=== PATIENT | female | born 1980 | race Caucasian/White ===

== ENCOUNTER 2016-09-13 15:24 | Emergency (ER) | payer SELFPAY ==
[2016-09-13 15:41] VITALS: RESP 18; TEMP 97.8
[2016-09-13] MEDS ORDERED: DIAZEPAM 5 MG TAB PO STA (17:22)
--- NOTE | 2016-09-13 17:33 | ED ---
General Adult HPI - General Chief complaint: Chest Pain Stated complaint: L shoulder pain Time Seen by Provider: 09/13/16 17:11 Source: patient, RN notes reviewed Mode of arrival: ambulatory Limitations: no limitations - History of Present Illness Initial comments: Patient 35-year-old female who presents emergency room today with multiple complaints. Patient does admit that she has had pain to the left shoulder area over the last few days. Does admit that there is no known injury or trauma. States she was at work earlier today and the symptoms seem to be worse. She states is worse with any movements of the left shoulder or her neck. States worse with rotation to the left. Patient does admit also that she's been having chest pain on and off over the last several months. Patient states is "pressure" in the center chest. She states his pain at times. States seems comfortable. States last typically approximately an hour and a half. She states she has days and not others. Patient admits that she does not have a family doctor has not had this checked out. She admits to a family history of cardiac disease. She denies any other complaints at this time. she states chest pain started while she was out in the waiting room. She does believe that it may be somewhat anxiety related as typically she is able to put her head down to her breathing and symptoms resolved. Patient denies any recent fever, chills, shortness of breath, back pain, abdominal pain, nausea or vomiting, numbness or tingling, dysuria or hematuria, constipation or diarrhea, headaches or visual changes, or any other complaints. - Related Data Previous Rx's Medication Instructions Recorded Cyclobenzaprine [Flexeril] 10 mg PO TID #20 tab 09/13/16 Ibuprofen [Motrin] 600 mg PO Q6HR PRN #40 day 09/13/16 Allergies Allergy/AdvReac Type Severity Reaction Status Date / Time Penicillins Allergy Rash/Hives Verified 09/13/16 17:57 Multi-grain foods Allergy Rash/Hives Uncoded 09/13/16 17:58 Review of Systems ROS Statement: Those systems with pertinent positive or pertinent negative responses have been documented in the HPI. ROS Other: All systems not noted in ROS Statement are negative. Past Medical History Past Medical History: No Reported History History of Any Multi-Drug Resistant Organisms: None Reported Additional Past Surgical History / Comment(s): carpal tunnel release Past Psychological History: No Psychological Hx Reported Smoking Status: Never smoker Past Alcohol Use History: None Reported Past Drug Use History: None Reported General Exam - General Exam Comments Initial Comments: General: The patient is awake and alert, in no distress, and does not appear acutely ill. Eye: Pupils are equal, round and reactive to light, extra-ocular movements are intact. No nystagmus. There is normal conjunctiva bilaterally. No signs of icterus. Ears, nose, mouth and throat: There are moist mucous membranes and no oral lesions. Neck: The neck is supple, there is no tenderness or JVD. Cardiovascular: There is a regular rate and rhythm. No murmur, rub or gallop is appreciated.pain reproduced on palpation to the anterior chest wall. Respiratory: Lungs are clear to auscultation, respirations are non-labored, breath sounds are equal. No wheezes, stridor, rales, or rhonchi. Gastrointestinal: Soft, non-distended, non-tender abdomen without masses or organomegaly noted. There is no rebound or guarding present. No CVA tenderness. Bowel sounds are unremarkable. Musculoskeletal: patient has normal appearance of cervical, thoracic, lumbar spine. No step-offs forms appreciated. No tenderness of the midline. Patient does have normal appearance of the left shoulder. Shows limited range of motion with abduction due to pain. He is tender over the posterior aspect of the left shoulder and also trapezius. Strength 5/5. Sensation intact. Pulses equal bilaterally 2+. Neurological: A&O x 3. CN II-XII intact, There are no obvious motor or sensory deficits. Coordination appears grossly intact. Speech is normal. Skin: Skin is warm and dry and no rashes or lesions are noted. Psychiatric: Cooperative, appropriate mood & affect, normal judgment. Limitations: no limitations Course Vital Signs 09/13/16 15:38 Temperature 97.8 F Pulse Rate 106 H Respiratory 18 Rate Blood Pressure 135/89 O2 Sat by Pulse 96 Oximetry Medical Decision Making - Medical Decision Making Case discussed in detail with attending physician Dr. Antonio. Patient reexamined at this time shows no signs acute distress patient was given Valium here in the emergency room. She admits that her shoulder pain has completely resolved and she has full range of motion is feeling much better here in the emergency room. She denies any chest pain at this time. She admits that his chest pain on and off over the last several months. Patient's labs been reviewed and are unremarkable. Negative cardiac enzymes. EKG shows normal sinus rhythm. patient's pain reproduced on palpation of the chest wall. Results were discussed with patient. Importance of following up with family doctor were discussed with the patient for further evaluation. She is advised return to emergency room if any symptoms increase or worsen. She'll be continued on a muscle laxer for her shoulder pain advised most likely muscle spasm or pulled muscle. Advised continue with anti-inflammatories as well. Advised patient to return to emergency room if any symptoms increase or worsen or for any other concerns. She states understanding and is in agreement with this plan. - Lab Data Result diagrams: 09/13/16 17:45 09/13/16 17:45 Lab Results 09/13/16 09/13/16 09/13/16 Range/Units 17:45 17:45 17:45 WBC 11.5 H (3.8-10.6) k/uL RBC 4.49 (3.80-5.40) m/uL Hgb 12.2 (11.4-16.0) gm/dL Hct 37.1 (34.0-46.0) % MCV 82.6 (80.0-100.0) fL MCH 27.3 (25.0-35.0) pg MCHC 33.0 (31.0-37.0) g/dL RDW 13.7 (11.5-15.5) % Plt Count 373 (150-450) k/uL Neutrophils % 82 % Lymphocytes % 12 % Monocytes % 3 % Eosinophils % 1 % Basophils % 0 % Neutrophils # 9.4 H (1.3-7.7) k/uL Lymphocytes # 1.4 (1.0-4.8) k/uL Monocytes # 0.4 (0-1.0) k/uL Eosinophils # 0.1 (0-0.7) k/uL Basophils # 0.1 (0-0.2) k/uL PT (9.0-12.0) sec INR (<1.1) APTT (22.0-30.0) sec Sodium 140 (137-145) mmol/L Potassium 4.3 (3.5-5.1) mmol/L Chloride 107 (98-107) mmol/L Carbon Dioxide 21 L (22-30) mmol/L Anion Gap 12 mmol/L BUN 11 (7-17) mg/dL Creatinine 0.81 (0.52-1.04) mg/dL Est GFR (MDRD) Af Amer >60 (>60 ml/min/1.73 sqM) Est GFR (MDRD) Non-Af >60 (>60 ml/min/1.73 sqM) Glucose 82 (74-99) mg/dL Calcium 9.4 (8.4-10.2) mg/dL Magnesium 2.0 (1.6-2.3) mg/dL Total Bilirubin 0.7 (0.2-1.3) mg/dL AST 18 (14-36) U/L ALT 24 (9-52) U/L Alkaline Phosphatase 67 (38-126) U/L Total Creatine Kinase 101 (30-135) U/L CK-MB (CK-2) 0.5 (0.0-2.4) ng/mL CK-MB (CK-2) Rel Index 0.5 Troponin I <0.012 (0.000-0.034) ng/mL Total Protein 7.6 (6.3-8.2) g/dL Albumin 4.4 (3.5-5.0) g/dL Urine Color Urine Appearance (Clear) Urine pH (5.0-8.0) Ur Specific [place] (1.001-1.035) Urine Protein (Negative) Urine Glucose (UA) (Negative) Urine Ketones (Negative) Urine Blood (Negative) Urine Nitrite (Negative) Urine Bilirubin (Negative) Urine Urobilinogen (<2.0) mg/dL Ur Leukocyte Esterase (Negative) Urine RBC (0-5) /hpf Urine WBC (0-5) /hpf Ur Squamous Epith Cells (0-4) /hpf Urine Mucus (None) /hpf Urine HCG, Qual (Not Detectd) 09/13/16 09/13/16 09/13/16 Range/Units 17:45 17:50 17:50 WBC (3.8-10.6) k/uL RBC (3.80-5.40) m/uL Hgb (11.4-16.0) gm/dL Hct (34.0-46.0) % MCV (80.0-100.0) fL MCH (25.0-35.0) pg MCHC (31.0-37.0) g/dL RDW (11.5-15.5) % Plt Count (150-450) k/uL Neutrophils % % Lymphocytes % % Monocytes % % Eosinophils % % Basophils % % Neutrophils # (1.3-7.7) k/uL Lymphocytes # (1.0-4.8) k/uL Monocytes # (0-1.0) k/uL Eosinophils # (0-0.7) k/uL Basophils # (0-0.2) k/uL PT 11.2 (9.0-12.0) sec INR 1.1 (<1.1) APTT 23.9 (22.0-30.0) sec Sodium (137-145) mmol/L Potassium (3.5-5.1) mmol/L Chloride (98-107) mmol/L Carbon Dioxide (22-30) mmol/L Anion Gap mmol/L BUN (7-17) mg/dL Creatinine (0.52-1.04) mg/dL Est GFR (MDRD) Af Amer (>60 ml/min/1.73 sqM) Est GFR (MDRD) Non-Af (>60 ml/min/1.73 sqM) Glucose (74-99) mg/dL Calcium (8.4-10.2) mg/dL Magnesium (1.6-2.3) mg/dL Total Bilirubin (0.2-1.3) mg/dL AST (14-36) U/L ALT (9-52) U/L Alkaline Phosphatase (38-126) U/L Total Creatine Kinase (30-135) U/L CK-MB (CK-2) (0.0-2.4) ng/mL CK-MB (CK-2) Rel Index Troponin I (0.000-0.034) ng/mL Total Protein (6.3-8.2) g/dL Albumin (3.5-5.0) g/dL Urine Color Yellow Urine Appearance Cloudy H (Clear) Urine pH 5.5 (5.0-8.0) Ur Specific [place] 1.021 (1.001-1.035) Urine Protein 1+ H (Negative) Urine Glucose (UA) Negative (Negative) Urine Ketones 1+ H (Negative) Urine Blood Negative (Negative) Urine Nitrite Negative (Negative) Urine Bilirubin Negative (Negative) Urine Urobilinogen <2.0 (<2.0) mg/dL Ur Leukocyte Esterase Large H (Negative) Urine RBC 12 H (0-5) /hpf Urine WBC 22 H (0-5) /hpf Ur Squamous Epith Cells 14 H (0-4) /hpf Urine Mucus Many H (None) /hpf Urine HCG, Qual Not Detected (Not Detectd) Disposition Clinical Impression: Muscle strain, Chest wall pain Disposition: HOME SELF-CARE Condition: Good Instructions: Muscle Spasm (ED), Chest Wall Pain (ED) Additional Instructions: Please use medication as discussed. please be aware that the muscle relaxant may make you drowsy. Please follow-up with family doctor in the next 2 days. Please return to emergency room if the symptoms increase or worsen or for any other concerns. Prescriptions: Cyclobenzaprine [Flexeril] 10 mg PO TID #20 tab Ibuprofen [Motrin] 600 mg PO Q6HR PRN #40 day PRN Reason: Pain Referrals: None,Stated [Primary Care Provider] - 1-2 days Diamante Cha MD [STAFF PHYSICIAN] - 1-2 days Johana Mejias MD [REFERRING] - 1-2 days Time of Disposition: 18:56
[2016-09-13 17:56] LABS: Basophils # (A) 0.1 k/uL (0-0.2); Basophils % (A) 0 %; CH 27.5; CHCM 33.4; Eosinophils # (A) 0.1 k/uL (0-0.7); Eosinophils % (A) 1 %; HCT 37.1 % (34.0-46.0); HDW 2.36; HGB 12.2 gm/dL (11.4-16.0); Luc # (Auto) 0.09; Luc % (Auto) 1; Lymphocytes # (A) 1.4 k/uL (1.0-4.8); Lymphocytes % (A) 12 %; MCH 27.3 pg (25.0-35.0); MCV 82.6 fL (80.0-100.0); Mean Platelet Volume 7.2; Monocytes # (A) 0.4 k/uL (0-1.0); Monocytes % (A) 3 %; Neutrophils # (A) 9.4 k/uL (1.3-7.7); Neutrophils % (A) 82 %; RBC 4.49 m/uL (3.80-5.40); RDW 13.7 % (11.5-15.5); WBC 11.5 k/uL (3.8-10.6); WBC (Perox) 11.75
[2016-09-13 18:05] LABS: INR 1.1 (<1.1); Partial Thromboplastin Time 23.9 sec (22.0-30.0); Prothrombin Time 11.2 sec (9.0-12.0)
[2016-09-13 18:05] LABS: Appearance,Urine Cloudy (Clear); Bilirubin,Urine Negative (Negative); Glucose,Urine (UA) Negative (Negative); Ketones,Urine 1+ (Negative); Leukocyte Esterase,Urine Large (Negative); Mucus,Urine Many /hpf; Nitrite,Urine Negative (Negative); PH, Urine 5.5 (5.0-8.0); Particle Count 29569; Protein,Urine 1+ (Negative); RBC,Urine 12 /hpf (0-5); Specific Gravity,Urine 1.021 (1.001-1.035); Squamous Epithelial Cell,Urine 14 /hpf (0-4); UA Billing (MACRO vs. MICRO) MICRO; Urobilinogen,Urine <2.0 mg/dL (<2.0); WBC,Urine 22 /hpf (0-5)
[2016-09-13 18:06] LABS: ALT 24 U/L (9-52); AST 18 U/L (14-36); Alkaline Phosphatase 67 U/L (38-126); Anion Gap 12 mmol/L; Blood Urea Nitrogen 11 mg/dL (7-17); Calcium 9.4 mg/dL (8.4-10.2); Carbon Dioxide 21 mmol/L (22-30); Chloride 107 mmol/L (98-107); Glucose 82 mg/dL (74-99); Non-African American GFR(MDRD) >60 (>60 ml/min/1.73 sqM); Potassium 4.3 mmol/L (3.5-5.1); Sodium 140 mmol/L (137-145); Total Bilirubin 0.7 mg/dL (0.2-1.3); Total Protein 7.6 g/dL (6.3-8.2)
[2016-09-13 18:14] LABS: Creatine Kinase 101 U/L (30-135)
--- NOTE | 2016-09-13 18:24 | XR ---
EXAMINATION TYPE: XR chest 2V DATE OF EXAM: 09/13/2016 COMPARISON: NONE HISTORY: Chest pain TECHNIQUE: Frontal and lateral views of the chest are obtained. FINDINGS: There is no focal air space opacity, pleural effusion, or pneumothorax seen. The cardiac silhouette size is within normal limits. The osseous structures are intact. IMPRESSION: No acute cardiopulmonary process.
[2016-09-13 18:27] LABS: Creatine Kinase MB 0.5 ng/mL (0.0-2.4); Troponin I <0.012 ng/mL (0.000-0.034)
[2016-09-13 18:56] VITALS: BP 152/99; PULSE 109
== END 2016-09-13 19:19 | disposition home or self-care (01) ==
LOC: EC 15:24
DX: S46.912A Strain of unspecified muscle, fascia and tendon at shoulder and upper arm level, left arm, initial encounter (principal); R07.89 Other chest pain; Z88.0 Allergy status to penicillin; Z91.018 Allergy to other foods; Z82.49 Family history of ischemic heart disease and other diseases of the circulatory system; X58.XXXA Exposure to other specified factors, initial encounter
CPT/HCPCS: 36415; 71020; 80053; 81001; 81025; 82550; 82553; 83735; 84484; 85025; 85610; 85730; 93005; 99285

== ENCOUNTER → 2019-04-26 | Outpatient (CLI) | payer BC ==
--- NOTE | 2019-04-26 09:53 | NM ---
Nuclear medicine hepatobiliary scan. HISTORY: Pain. DOSAGE: The patient received 8 ounces of ensure plus and 4.9 mCi of Technetium 99m Choletec. FINDINGS: There is normal hepatic extraction. The gallbladder is seen by 15 minutes. There is bilia ry to bowel clearance by 15 minutes. Ejection fraction is 69%. IMPRESSION: 1. Normal hepatobiliary exam
== END | disposition home or self-care (01) ==
LOC: RADNMMAIN 06:51
PROVIDERS: ATTEND Family Medicine
DX: R10.11 Right upper quadrant pain (principal); Z88.0 Allergy status to penicillin
CPT/HCPCS: 78226; A9537

== ENCOUNTER 2019-06-20 13:07 | Day surgery (SDC) | payer BC ==
[2019-06-16 11:35] VITALS: BMI 38.7
[~2019-06-20 13:07] MED LIST: LACTATED RINGERS 1,000 ML IV SCH; LIDOCAINE 1% (10MG/ML) FOR IV START INTRADERMA PRN
[2019-06-20 13:20] VITALS: TEMP 97.8
[2019-06-20] MEDS ORDERED: LACTATED RINGERS 1,000 ML IV ONE (13:20)
[2019-06-20] MEDS ORDERED: PROPOFOL 10 MG/ML 20 ML VIAL IV ONE (14:06)
--- NOTE | 2019-06-20 14:28 | P.PCN ---
Date of Procedure: 06/20/19 Description of Procedure: BRIEF HISTORY: 38-year-old female who presents with complaints of 3 months of right upper quadrant abdominal pain with plan for EGD for further evaluation. She reports persistent abdominal pain with nausea and nonbloody vomiting. Unintentional weight loss of over 50 pounds. Symptoms worse with meals. PROCEDURE PERFORMED: Esophagogastroduodenoscopy with biopsy. PREOPERATIVE DIAGNOSIS: Right upper quadrant abdominal pain, altered bowel function. ESTIMATED BLOOD LOSS: Minimal. IV sedation per anesthesia. PROCEDURE: After informed consent was obtained, the patient was brought into the endoscopy unit. IV sedation was administered by Anesthesia under continuous monitoring. Initially the Olympus GIF-190 video endoscope was inserted into the mouth. Esophagus intubated without any difficulty. It was gradually advanced into the stomach and duodenum and carefully examined. The bulb and the second part of the duodenum appeared normal, with biopsies taken to rule out celiac sprue. The scope at this time was withdrawn to the stomach, adequately insufflated with air, and upon careful examination, mucosa of the antrum, body, cardia and the fundus appeared normal, except for some mild scattered erythema in the antrum and body suggestive of mild gastritis with biopsies taken. The scope was then withdrawn into the esophagus. The GE junction was located at 38 cm from the incisors, with biopsies taken to rule out reflux esophagitis. The esophagus appeared normal. There were no erosions or ulcerations seen and the patient tolerated the procedure well. IMPRESSION: 1. Mild gastritis antrum and body, biopsied. 2. Biopsies of the duodenum and GE junction. RECOMMENDATIONS: The findings of this examination were discussed with the patient and her mother. Okay to resume diet. Okay to resume medications. Follow-up in gastroenterology clinic as previously scheduled for results of biopsies and further management.
[2019-06-20 14:38] VITALS: RESP 16
[2019-06-20] MEDS ORDERED: ONDANSETRON 4 MG/2 ML VIAL IVP ONE (14:48)
[2019-06-20 14:59] VITALS: BP 114/68; PULSE 79
== END 2019-06-20 15:20 | disposition home or self-care (01) ==
LOC: ORWHC2ENDO 13:07
PROVIDERS: ATTEND Internal Medicine
DX: K29.50 Unspecified chronic gastritis without bleeding (principal); K20.9 Esophagitis, unspecified; J45.909 Unspecified asthma, uncomplicated; F41.9 Anxiety disorder, unspecified; R63.4 Abnormal weight loss; Z87.891 Personal history of nicotine dependence; Z88.0 Allergy status to penicillin; Z79.899 Other long term (current) drug therapy; Z98.890 Other specified postprocedural states
CPT/HCPCS: 81025; 88305; 43239; J2405; J2704

== ENCOUNTER 2019-06-22 12:47 | Observation (INO) | payer BC ==
[2019-06-22] MEDS ORDERED: SODIUM CHLORIDE 0.9% 1,000 ML IV STA (14:17)
[2019-06-22] MEDS ORDERED: MORPHINE SULFATE 4 MG/ML SYRINGE IV STA (14:17)
[2019-06-22] MEDS ORDERED: METOCLOPRAMIDE 5 MG/ML 2 ML VIAL IVP STA (14:17)
[2019-06-22 14:31] LABS: Appearance,Urine Cloudy (Clear); Bacteria,Urine Rare /hpf; Bilirubin,Urine Negative (Negative); Blood,Urine Moderate (Negative); Color,Urine Yellow; Glucose,Urine (UA) Negative (Negative); Hyaline Casts,Urine 2 /lpf (0-2); Ketones,Urine 3+ (Negative); Leukocyte Esterase,Urine Moderate (Negative); Mucus,Urine Many /hpf; Nitrite,Urine Negative (Negative); Protein,Urine 1+ (Negative); RBC,Urine 8 /hpf (0-5); Squamous Epithelial Cell,Urine 2 /hpf (0-4); WBC,Urine 9 /hpf (0-5)
[2019-06-22 14:44] LABS: Basophils # (A) 0.1 k/uL (0-0.2); Basophils % (A) 1 %; Eosinophils # (A) 0.1 k/uL (0-0.7); Eosinophils % (A) 1 %; HCT 38.4 % (34.0-46.0); HGB 12.5 gm/dL (11.4-16.0); Lymphocytes # (A) 1.5 k/uL (1.0-4.8); Lymphocytes % (A) 18 %; MCH 28.3 pg (25.0-35.0); MCHC 32.6 g/dL (31.0-37.0); Monocytes # (A) 0.4 k/uL (0-1.0); Monocytes % (A) 5 %; Neutrophils % (A) 74 %; Platelet Count 387 k/uL (150-450); RBC 4.41 m/uL (3.80-5.40); RDW 13.4 % (11.5-15.5); WBC 8.1 k/uL (3.8-10.6)
[2019-06-22 14:52] LABS: ALT 12 U/L (4-34); AST 20 U/L (14-36); African American GFR (CKD) >90 (>60 ml/min/1.73 sqM); Albumin 4.5 g/dL (3.5-5.0); Alkaline Phosphatase 65 U/L (38-126); Anion Gap 10 mmol/L; Blood Urea Nitrogen 12 mg/dL (7-17); Calcium 9.6 mg/dL (8.4-10.2); Carbon Dioxide 22 mmol/L (22-30); Chloride 105 mmol/L (98-107); Glucose 73 mg/dL (74-99); Non-African American GFR(CKD) 87 (>60 ml/min/1.73 sqM); Potassium 4.6 mmol/L (3.5-5.1); Sodium 137 mmol/L (137-145); Total Bilirubin 0.5 mg/dL (0.2-1.3); Total Protein 7.4 g/dL (6.3-8.2)
--- NOTE | 2019-06-22 14:55 | ED ---
General Adult HPI - General Chief complaint: Abdominal Pain Stated complaint: gallbladder problems Time Seen by Provider: 06/22/19 14:05 Source: patient, RN notes reviewed, old records reviewed Mode of arrival: ambulatory Limitations: no limitations - History of Present Illness Initial comments: 38-year-old female patient presents to ED for abdominal pain, nausea vomiting and diarrhea. Patient reports that she has been having these symptoms since January. Patient was that she has had extensive investigations into her gallbladder. This includes ultrasounds, HIDA scan which have been unremarkable. Patient that she is due to see a surgeon for the first time next week, however reports that the pain nausea vomiting diarrhea is unbearable. States that the pain is located in her periumbilical, right upper quadrant, right lower quadrant region. Denies a chance being . Denies any other complaints. Systemic: Pt denies fatigue, fever/chills, rash. Pt denies weakness, night sweats, weight loss. Neuro: Pt denies headache, visual disturbances, syncope or pre-syncope. HEENT: Pt denies ocular discharge or irritation, otalgia, rhinorrhea, p haryngitis or notable lymphadenopathy. Cardiopulmonary: Pt denies chest pain, SOB, heart palpitations, dyspnea on exertion. : Pt denies dysuria, burning w/ urination, frequency/urgency. Denies new onset urinary or bowel incontinence. MSK: Pt denies myalgia, loss of strength or function in extremities. Neuro: Pt denies new onset weakness, paresthesias. - Related Data Home Medications Medication Instructions Recorded Confirmed Albuterol Inhaler [Ventolin Hfa 1 - 2 puff INHALATION RT-Q6H PRN 06/16/19 06/20/19 Inhaler] Albuterol Nebulized [Ventolin 2.5 mg INHALATION Q4H PRN 06/16/19 06/20/19 Nebulized] Junel Fe 1 tab PO DAILY 06/16/19 06/20/19 Ondansetron HCl [Zofran] 8 mg PO Q8H 06/16/19 06/16/19 PARoxetine [Paxil] 10 mg PO QAM 06/16/19 06/16/19 Allergies Allergy/AdvReac Type Severity Reaction Status Date / Time Penicillins Allergy Rash/Hives Verified 06/22/19 12:58 Multi-grain foods Allergy Rash/Hives Uncoded 06/16/19 11:30 Review of Systems ROS Statement: Those systems with pertinent positive or pertinent negative responses have been documented in the HPI. ROS Other: All systems not noted in ROS Statement are negative. Past Medical History Past Medical History: Asthma Additional Past Medical History / Comment(s): nausea, rt sided abdominal pain History of Any Multi-Drug Resistant Organisms: None Reported Past Surgical History: Orthopedic Surgery Additional Past Surgical History / Comment(s): rt carpal tunnel release, wisdom teeth, D&C, EGD, colonoscopy Past Anesthesia/Blood Transfusion Reactions: Previous Problems w/ Anesthesia Additional Past Anesthesia/Blood Transfusion Reaction / Comment(s): states "had asthma attack" in post op after last procedure Past Psychological History: Anxiety Smoking Status: Former smoker General Exam - General Exam Comments Initial Comments: Constitutional: NAD, AOX3, Pt has pleasant affect. HEENT: NC/AT, trachea midline, neck supple, no lymphadenopathy. Posterior pharynx non erythematous, without exudates. External ears appear normal, without discharge. Mucous membranes moist. Eyes PERRLA, EOM intact. There is no scleral icterus. No pallor noted. Cardiopulmonary: RRR, no murmurs, rubs or gallops, no JVD noted. Lungs CTAB in anterior and posterior nicholas. No peripheral edema. Abdominal exam: Abdomen mild tenderness to palpation periumbilical, right lower quadrant region. No guarding or rigidity, no skin changes. Neuro: CN II-XII grossly intact. No nuchal rigidity. No raccon eyes, no morgan sign, no hemotympanum. No cervical spinal tenderness. MSK: No posterior calf tenderness bilaterally, homans sign negative bilaterally. Posterior tibialis and radial pulse +2 bilaterally. Sensation intact in upper and lower extremities. Full active ROM in upper and lower extremities, 5/5 stregnth. Limitations: no limitations Course Vital Signs 06/22/19 06/22/19 06/22/19 12:57 13:58 15:23 Temperature 97.8 F 98.8 F Pulse Rate 72 100 64 Respiratory 16 18 18 Rate Blood Pressure 117/81 119/78 114/75 O2 Sat by Pulse 99 100 98 Oximetry Medical Decision Making - Medical Decision Making 38-year-old female patient presents to ED for abdominal pain, nausea vomiting and diarrhea. Patient reports that she has been having these symptoms since January. Patient was that she has had extensive investigations into her gallbladder. This includes ultrasounds, HIDA scan which have been unremarkable. Patient that she is due to see a surgeon for the first time next week, however reports that the pain nausea vomiting diarrhea is unbearable. States that the pain is located in her periumbilical, right upper quadrant, right lower quadrant region. Denies a chance being . Denies any other complaints. Patient vital signs stable, afebrile. Physical exam displayed: Abdomen mild tenderness to palpation periumbilical, right lower quadrant region. No guarding or rigidity, no skin changes. Laboratory investigations displayed +[address] and pelvis displayed mild long segment fast straining ascending colon most likely in the base of acute uncomplicated inflammatory or infectious colitis. Left adnexal mass could be contiguous of the uterus. A vaginal ultrasound displayed no adnexal mass or torsion. Large uterine fibroid. Patient be admitted for colitis. Initiated on fluids, antibiotics. Case discussed with Dr. Alarcon. - Lab Data Result diagrams: 06/22/19 14:30 06/22/19 14:30 Lab Results 06/22/19 06/22/19 06/22/19 Range/Units 13:45 13:45 14:30 WBC 8.1 (3.8-10.6) k/uL RBC 4.41 (3.80-5.40) m/uL Hgb 12.5 (11.4-16.0) gm/dL Hct 38.4 (34.0-46.0) % MCV 87.0 (80.0-100.0) fL MCH 28.3 (25.0-35.0) pg MCHC 32.6 (31.0-37.0) g/dL RDW 13.4 (11.5-15.5) % Plt Count 387 (150-450) k/uL Neutrophils % 74 % Lymphocytes % 18 % Monocytes % 5 % Eosinophils % 1 % Basophils % 1 % Neutrophils # 6.0 (1.3-7.7) k/uL Lymphocytes # 1.5 (1.0-4.8) k/uL Monocytes # 0.4 (0-1.0) k/uL Eosinophils # 0.1 (0-0.7) k/uL Basophils # 0.1 (0-0.2) k/uL Sodium (137-145) mmol/L Potassium (3.5-5.1) mmol/L Chloride (98-107) mmol/L Carbon Dioxide (22-30) mmol/L Anion Gap mmol/L BUN (7-17) mg/dL Creatinine (0.52-1.04) mg/dL Est GFR (CKD-EPI)AfAm (>60 ml/min/1.73 sqM) Est GFR (CKD-EPI)NonAf (>60 ml/min/1.73 sqM) Glucose (74-99) mg/dL Plasma Lactic Acid Lionel (0.7-2.0) mmol/L Calcium (8.4-10.2) mg/dL Total Bilirubin (0.2-1.3) mg/dL AST (14-36) U/L ALT (4-34) U/L Alkaline Phosphatase (38-126) U/L Total Protein (6.3-8.2) g/dL Albumin (3.5-5.0) g/dL Lipase (23-300) U/L Urine Color Yellow Urine Appearance Cloudy H (Clear) Urine pH 6.0 (5.0-8.0) Ur Specific [place] 1.030 (1.001-1.035) Urine Protein 1+ H (Negative) Urine Glucose (UA) Negative (Negative) Urine Ketones 3+ H (Negative) Urine Blood Moderate H (Negative) Urine Nitrite Negative (Negative) Urine Bilirubin Negative (Negative) Urine Urobilinogen 2.0 (<2.0) mg/dL Ur Leukocyte Esterase Moderate H (Negative) Urine RBC 8 H (0-5) /hpf Urine WBC 9 H (0-5) /hpf Ur Squamous Epith Cells 2 (0-4) /hpf Urine Bacteria Rare H (None) /hpf Hyaline Casts 2 (0-2) /lpf Urine Mucus Many H (None) /hpf Urine HCG, Qual Not Detected (Not Detectd) 06/22/19 06/22/19 Range/Units 14:30 14:30 WBC (3.8-10.6) k/uL RBC (3.80-5.40) m/uL Hgb (11.4-16.0) gm/dL Hct (34.0-46.0) % MCV (80.0-100.0) fL MCH (25.0-35.0) pg MCHC (31.0-37.0) g/dL RDW (11.5-15.5) % Plt Count (150-450) k/uL Neutrophils % % Lymphocytes % % Monocytes % % Eosinophils % % Basophils % % Neutrophils # (1.3-7.7) k/uL Lymphocytes # (1.0-4.8) k/uL Monocytes # (0-1.0) k/uL Eosinophils # (0-0.7) k/uL Basophils # (0-0.2) k/uL Sodium 137 (137-145) mmol/L Potassium 4.6 (3.5-5.1) mmol/L Chloride 105 (98-107) mmol/L Carbon Dioxide 22 (22-30) mmol/L Anion Gap 10 mmol/L BUN 12 (7-17) mg/dL Creatinine 0.86 (0.52-1.04) mg/dL Est GFR (CKD-EPI)AfAm >90 (>60 ml/min/1.73 sqM) Est GFR (CKD-EPI)NonAf 87 (>60 ml/min/1.73 sqM) Glucose 73 L (74-99) mg/dL Plasma Lactic Acid Lionel 0.7 (0.7-2.0) mmol/L Calcium 9.6 (8.4-10.2) mg/dL Total Bilirubin 0.5 (0.2-1.3) mg/dL AST 20 (14-36) U/L ALT 12 (4-34) U/L Alkaline Phosphatase 65 (38-126) U/L Total Protein 7.4 (6.3-8.2) g/dL Albumin 4.5 (3.5-5.0) g/dL Lipase 32 (23-300) U/L Urine Color Urine Appearance (Clear) Urine pH (5.0-8.0) Ur Specific [place] (1.001-1.035) Urine Protein (Negative) Urine Glucose (UA) (Negative) Urine Ketones (Negative) Urine Blood (Negative) Urine Nitrite (Negative) Urine Bilirubin (Negative) Urine Urobilinogen (<2.0) mg/dL Ur Leukocyte Esterase (Negative) Urine RBC (0-5) /hpf Urine WBC (0-5) /hpf Ur Squamous Epith Cells (0-4) /hpf Urine Bacteria (None) /hpf Hyaline Casts (0-2) /lpf Urine Mucus (None) /hpf Urine HCG, Qual (Not Detectd) Disposition Clinical Impression: Colitis, Abdominal pain, Dehydration Disposition: ADMITTED IP TO THIS HOSP Condition: Serious Is patient prescribed a controlled substance at d/c from ED?: No
--- NOTE | 2019-06-22 15:14 | CT ---
EXAMINATION TYPE: CT abdomen pelvis w con DATE OF EXAM: 06/22/2019 HISTORY: right flank pain CT DLP: 1870.8mGycm Automated Exposure Control for Dose Reduction was Utilized. CONTRAST: CT scan of the abdomen and pelvis is performed with IV Contrast, patient injected with 100 mL of Isov ue 300. COMPARISON: None. FINDINGS: LUNG BASES: No significant abnormality is appreciated. LIVER/GB: No significant abnormality is appreciated. No radiopaque calculi. PANCREAS: No significant abnormality is seen. SPLEEN: No significant abnormality is seen. ADRENALS: No significant abnormality is seen. KIDNEYS: No hydronephrosis of either kidney. Too small to accurately characterize left renal lesion i s seen emanating from the anterior midpole on delayed imaging. BOWEL: There is minimal inflammatory change surrounding the ascending colon in a long segment with brizuela btle bowel wall thickening that may be exaggerated due to incomplete distention and lack of oral cont rast. What is thought to be the appendix is retrocecal and within normal limits of size. 6 mm short a xis adjacent lymph node is seen near the terminal ileum. UTERUS/ADNEXA: Follicular and/or cystic change of the right ovary and lobulated 5.6 x 4.6 cm left adn exal mass that could be contiguous with the uterus. LYMPH NODES: No greater than 1cm abdominal or pelvic lymph nodes are appreciated. OSSEOUS STRUCTURES: No significant abnormality is seen. Mild degenerative change. IMPRESSION: 1. Mild long segment fat stranding of the ascending colon most likely on the basis of acute uncomplic ated inflammatory or infectious colitis. 2. Left adnexal mass that could be contiguous with the uterus. Pelvic ultrasound is recommended for f urther evaluation.
[2019-06-22] MEDS ORDERED: NALOXONE 0.4 MG/ML 1 ML VIAL IV PRN (16:07)
[2019-06-22] MEDS ORDERED: LEVOFLOXACIN 750MG-D5W PMX 750 MG in DEXTROSE/WATER 1 150ML.BAG IVPB STA (16:07)
[2019-06-22] MEDS ORDERED: METOCLOPRAMIDE 5 MG/ML 2 ML VIAL IM PRN (16:09)
[2019-06-22] MEDS: SODIUM CHLORIDE 0.9% 1,000 ML IV SCH (16:24)
--- NOTE | 2019-06-22 17:03 | US ---
EXAMINATION TYPE: US transvaginal DATE OF EXAM: 06/22/2019 COMPARISON: NONE CLINICAL HISTORY: colitis. pain follow up to ct scan TECHNIQUE: Transvaginal (TV EXAM MEASUREMENTS: Uterus: 7.6 x 3.6 x 4.3 cm Endometrial Stripe: .3 cm Right Ovary: 3.1 x 2.2 x 2.1 cm Left Ovary: 2.7 x 2.1 x 1.6 cm 1. Uterus: Anteverted Heterogenous. Fibroids seen largest to the left measuring 4.6 x 5.1 x 6.0 cm . 2. Endometrium: wnl 3. Right Ovary: wnl 4. Left Ovary: wnl Spectral, color and waveform doppler imaging shows good arterial and venous flow within the ovaries ; there is no evidence for ovarian torsion. 5. Bilateral Adnexa: wnl 6. Posterior cul-de-sac: wnl IMPRESSION: No adnexal mass or free fluid. No evidence of ovarian torsion. Normal endometrium. Large uterine fibr oid.
[2019-06-22] MEDS: MORPHINE SULFATE 4 MG/ML SYRINGE IV PRN (20:52)
[2019-06-22] MEDS: ONDANSETRON 4 MG/2 ML VIAL IVP PRN (22:06)
[2019-06-23] MEDS: SODIUM CHLORIDE 0.9% 1,000 ML IV SCH ×4 (00:14→20:55)
[2019-06-23] MEDS: PANTOPRAZOLE 40 MG/10 ML VIAL IVP SCH ×2 (08:58→20:54)
[2019-06-23 11:42] VITALS: BMI 38.7
[2019-06-23] MEDS: MORPHINE SULFATE 4 MG/ML SYRINGE IV PRN (11:45)
[2019-06-23] MEDS: ONDANSETRON 4 MG/2 ML VIAL IVP PRN (11:47)
[2019-06-23] MEDS ORDERED: LEVOFLOXACIN 750MG-D5W PMX 750 MG in DEXTROSE/WATER 1 150ML.BAG IVPB SCH (12:00)
[2019-06-23] MEDS: PARoxetine 10 MG TAB PO SCH (13:25)
[2019-06-23] MEDS: ONDANSETRON 4 MG/2 ML VIAL IVP SCH ×2 (15:25→23:18)
[2019-06-23] MEDS: DICYCLOMINE 20 MG TAB PO SCH ×2 (17:39→20:54)
--- NOTE | 2019-06-23 23:01 | P.HPIM ---
History of Present Illness H&P Date: 06/23/19 Chief Complaint: abd pain Charlotte Roblero is a 38 yo F with PMH of anxiety, uterine fibroids who presented to the ED complaining of a 2 month history of progressively worsening episodic abdominal pain, nausea, vomiting and diarrhea. She states that over the past few weeks especially these episodes have become more frequent. She does not feel this worsens with certain types of food. She has recently had evaluations of her gallbladder outpatient including HIDA scan which was negative. On presentation her vitals were stable, labs unremarkable, CT with fat stranding along ascending colon. Review of Systems All systems: negative Constitutional: Denies chills, Denies fever Eyes: denies blurred vision, denies pain Ears, nose, mouth and throat: Denies headache, Denies sore throat Cardiovascular: Denies chest pain, Denies shortness of breath Respiratory: Denies cough Gastrointestinal: Reports as per HPI, Reports abdominal pain, Reports bloating, Reports nausea, Reports vomiting, Denies diarrhea, Denies melena Genitourinary: Reports abnormal vaginal bleeding, Denies dysuria, Denies hematuria Musculoskeletal: Denies myalgias Integumentary: Denies pruritus, Denies rash Neurological: Denies numbness, Denies weakness Psychiatric: Denies anxiety, Denies depression Endocrine: Denies fatigue, Denies weight change Past Medical History Past Medical History: Asthma Additional Past Medical History / Comment(s): nausea, rt sided abdominal pain, large uterine fibroid History of Any Multi-Drug Resistant Organisms: None Reported Past Surgical History: Orthopedic Surgery Additional Past Surgical History / Comment(s): rt carpal tunnel release, wisdom teeth, D&C, EGD, colonoscopy, HIDA Past Anesthesia/Blood Transfusion Reactions: Previous Problems w/ Anesthesia Additional Past Anesthesia/Blood Transfusion Reaction / Comment(s): states "had asthma attack" in post op after last procedure Past Psychological History: Anxiety Smoking Status: Former smoker Past Alcohol Use History: None Reported Additional Past Alcohol Use History / Comment(s): quit smoking in 2019, smoked for a few months only 1/2ppd Past Drug Use History: None Reported Additional Drug Use History / Comment(s): occasional CBD oil use, instructed to hold 24 hrs prior to procedure - Past Family History Mother Family Medical History: Hypertension, Rheumatoid Arthritis (RA) Additional Family Medical History / Comment(s): Diverticulitis, Neuropathy, anxiety Father Family Medical History: Hypertension, Thyroid Disorder Medications and Allergies Home Medications Medication Instructions Recorded Confirmed Type Albuterol Inhaler [Ventolin Hfa 1 - 2 puff INHALATION RT-Q6H PRN 06/16/19 06/22/19 History Inhaler] Albuterol Nebulized [Ventolin 2.5 mg INHALATION RT-QID PRN 06/16/19 06/22/19 History Nebulized] Ondansetron HCl [Zofran] 8 mg PO Q8H PRN 06/16/19 06/22/19 History PARoxetine [Paxil] 10 mg PO DAILY 06/16/19 06/22/19 History ALPRAZolam [Xanax] 0.25 mg PO DAILY PRN 06/22/19 06/22/19 History Norethindrone-E.estradiol-Iron 1 tab PO DAILY 06/22/19 06/22/19 History [Junel Fe 1 mg-20 Mcg Tablet] Allergies Allergy/AdvReac Type Severity Reaction Status Date / Time Penicillins Allergy Rash/Hives Verified 06/22/19 18:25 Multi-grain foods Allergy Rash/Hives Uncoded 06/16/19 11:30 Physical Exam Vitals: Vital Signs Temp Pulse Resp BP Pulse Ox 06/23/19 20:50 98.5 F 68 16 104/66 97 06/23/19 16:00 16 06/23/19 14:57 98.8 F 64 16 110/72 100 06/23/19 08:00 16 06/23/19 07:28 98.2 F 73 12 114/76 99 06/23/19 05:20 97.6 F 77 20 119/71 95 Intake and Output 06/23/19 06/23/19 06/23/19 06:59 14:59 22:59 Intake Total 500 Balance 500 Intake: Oral 500 Other: Voiding Method Toilet Toilet Toilet # Voids 3 2 1 # Bowel Movements 0 Weight 108.862 kg General: well nourished, well developed, NAD. Vitals reviewed Eyes: PERRL, EOMI, conjunctiva normal HENT: normocephalic, mucus membranes moist Neck: supple, no JVD Lungs: normal respiratory effort, no wheezes or rales CV: Regular rate and rhythm, no murmur. Peripheral pulses 2+ Abdomen: soft, nondistended, no organomegaly. mildly tender throughout Lymph: no cervical or axillary LAD Skin: warm and dry. Neuro: A&Ox3, normal mood and affect Results CBC & Chem 7: 06/22/19 14:30 06/22/19 14:30 Labs: Abnormal Lab Results - Last 24 Hours (Table) 06/23/19 Range/Units 08:37 ESR 25 H (0-20) mm/hr Thrombosis Risk Factor Assmnt - Choose All That Apply Each Factor Represents 1 point: Obesity (BMI >25) Other Risk Factors: No Thrombosis Risk Factor Assessment Total Risk Factor Score: 1 Thrombosis Risk Factor Assessment Level: Low Risk Assessment and Plan (1) Generalized anxiety disorder Current Visit: Yes Status: Acute Code(s): F41.1 - GENERALIZED ANXIETY DISORDER SNOMED Code(s): 17058111 (2) Abdominal pain Current Visit: Yes Status: Acute Code(s): R10.9 - UNSPECIFIED ABDOMINAL PAIN SNOMED Code(s): 35292872 (3) Colitis Current Visit: Yes Status: Acute Code(s): K52.9 - NONINFECTIVE GASTROENTER ITIS AND COLITIS, UNSPECIFIED SNOMED Code(s): 51174224 Plan: 1. Abdominal pain, colitis. GI consulted for further evaluation. Bentyl and levaquin ordered. Zofran for nausea 2. JOEY. Continue home paxil 3. Irregular menses, uterine fibroid. Stable, TVUS otherwise negative
[2019-06-24] MEDS: SODIUM CHLORIDE 0.9% 1,000 ML IV SCH ×2 (02:19→13:55)
[2019-06-24] MEDS: PANTOPRAZOLE 40 MG/10 ML VIAL IVP SCH (08:45)
[2019-06-24] MEDS: PARoxetine 10 MG TAB PO SCH (08:45)
[2019-06-24] MEDS: DICYCLOMINE 20 MG TAB PO SCH ×2 (08:45→12:57)
[2019-06-24] MEDS: ONDANSETRON 4 MG/2 ML VIAL IVP SCH (08:47)
[2019-06-24 09:11] VITALS: RESP 12
[2019-06-24 13:11] VITALS: BP 109/74; PULSE 74; TEMP 98.5
--- NOTE | 2019-06-24 14:05 | P.CONS ---
History of Present Illness - Reason for Consult Consult date: 06/23/19 Abdominal pain, colitis Requesting physician: Derik Bowden - Chief Complaint Abdominal pain, diarrhea - History of Present Illness 38-year-old female with a medical history significant for uterine fibroids, anxiety who presented to the hospital with complaints of abdominal pain, vomiting and diarrhea. She is been having abdominal pain for months now. She describes the pain as in the right upper quadrant severe in nature and sharp. Previously she had been evaluated with a HIDA scan as well as an EGD on 06/20/2019 which was significant only for gastritis. She reports multiple episodes of nausea and vomiting prior to presentation no signs or symptoms of GI bleeding. She also reports multiple loose bowel movements. No history of colonoscopy in the past. She had a computed tomography scan in evaluation which showed possible inflammation of the right colon. Review of Systems REVIEW OF SYSTEMS: CONSTITUTIONAL: Denies any fevers, chills, weight change or fatigue. CARDIOVASCULAR: Denies any chest pain, palpitations high or low blood pressures RESPIRATORY: Denies any shortness of breath, hemoptysis or cough. GENITOURINARY: No dysuria or hematuria. MUSCULOSKELETAL: No weakness reported. SKIN: Denies any new rashes or lesions, jaundice or pallor. PSYCHIATRIC: Denies any depression but she does have a history of xiety. NEUROLOGY: Denies headache, denies any new focal deficits. EARS/NOSE/THROAT: No recent hearing change, congestion, nasal discharge or sore throat. EYES: No pain in eyes, discharge or change in vision. GASTROINTESTINAL: As per HPI. Past Medical History Past Medical History: Asthma Additional Past Medical History / Comment(s): nausea, rt sided abdominal pain, large uterine fibroid History of Any Multi-Drug Resistant Organisms: None Reported Past Surgical History: Orthopedic Surgery Additional Past Surgical History / Comment(s): rt carpal tunnel release, wisdom teeth, D&C, EGD, colonoscopy, HIDA Past Anesthesia/Blood Transfusion Reactions: Previous Problems w/ Anesthesia Additional Past Anesthesia/Blood Transfusion Reaction / Comm: states "had asthma attack" in post op after last procedure Past Psychological History: Anxiety Smoking Status: Former smoker Past Alcohol Use History: None Reported Additional Past Alcohol Use History / Comment(s): quit smoking in 2019, smoked for a few months only 1/2ppd Past Drug Use History: None Reported Additional Drug Use History / Comment(s): occasional CBD oil use, instructed to hold 24 hrs prior to procedure - Past Family History Mother Family Medical History: Hypertension, Rheumatoid Arthritis (RA) Additional Family Medical History / Comment(s): Diverticulitis, Neuropathy, anxiety Father Family Medical History: Hypertension, Thyroid Disorder Medications and Allergies Home Medications Medication Instructions Recorded Confirmed Type Albuterol Inhaler [Ventolin Hfa 1 - 2 puff INHALATION RT-Q6H PRN 06/16/19 06/22/19 History Inhaler] Albuterol Nebulized [Ventolin 2.5 mg INHALATION RT-QID PRN 06/16/19 06/22/19 History Nebulized] Ondansetron HCl [Zofran] 8 mg PO Q8H PRN 06/16/19 06/22/19 History PARoxetine [Paxil] 10 mg PO DAILY 06/16/19 06/22/19 History ALPRAZolam [Xanax] 0.25 mg PO DAILY PRN 06/22/19 06/22/19 History Norethindrone-E.estradiol-Iron 1 tab PO DAILY 06/22/19 06/22/19 History [Junel Fe 1 mg-20 Mcg Tablet] Dicyclomine [Bentyl] 20 mg PO QID #40 tab 06/24/19 Rx Pantoprazole [Protonix] 40 mg PO BID #60 tablet. 06/24/19 Rx Allergies Allergy/AdvReac Type Severity Reaction Status Date / Time Penicillins Allergy Rash/Hives Verified 06/22/19 18:25 Multi-grain foods Allergy Rash/Hives Uncoded 06/16/19 11:30 Physical Exam Vitals: Vital Signs Temp Pulse Pulse Resp BP BP Pulse Ox 06/23/19 14:57 98.8 F 64 16 110/72 100 06/23/19 08:00 16 06/23/19 07:28 98.2 F 73 12 114/76 99 06/23/19 05:20 97.6 F 77 20 119/71 95 06/22/19 21:23 98.3 F 97 20 116/76 95 06/22/19 18:10 98.0 F 56 L 16 111/82 97 06/22/19 17:45 18 06/22/19 15:23 64 18 114/75 98 Intake and Output 06/23/19 06/23/19 06/23/19 06:59 14:59 22:59 Intake Total 500 Balance 500 Intake: Oral 500 Other: Voiding Method Toilet Toilet # Voids 3 2 Weight 108.862 kg On physical examination, patient appears comfortable in no apparent distress. HEAD: Normocephalic, atraumatic. EYES: No scleral icterus. No conjunctival injection. MOUTH: No lesions, tongue midline. NECK: Trachea midline, no gross abnormalities. CHEST: Clear to auscultation with no wheezing or rhonchi appreciated. HEART: Regular rate and rhythm. ABDOMEN: Soft, obese, mildly tender to palpation. Bowel sounds are positive. No organomegaly. No guarding or rigidity. EXTREMITIES: No pedal edema. SKIN: No rashes, no jaundice. NEUROLOGIC: Alert and oriented x3. No focal deficits. Results CBC & Chem 7: 06/22/19 14:30 06/22/19 14:30 Labs: Abnormal Lab Results - Last 24 Hours (Table) 06/23/19 Range/Units 08:37 ESR 25 H (0-20) mm/hr CT scan - abdomen: report reviewed (Computed tomography scan of the abdomen suggestive of inflammation of the right colon.) Assessment and Plan (1) Abdominal pain Narrative/Plan: 38-year-old female with history of anxiety and abdominal pain which has been present for the past few months. EGD performed on 06/20/2019 significant only for gastritis presented with symptoms of nausea, vomiting, abdominal pain and diarrhea. Unknown etiology with no evidence of peptic ulcer disease or other upper GI pathology on EGD, may be related to bacterial or viral gastroenteritis, functional bowel disorder, or other etiology. Computed tomography scan also showing fat stranding of the right colon however definitive colitis non- diagnosed. Current Visit: Yes Status: Acute Code(s): R10.9 - UNSPECIFIED ABDOMINAL PAIN SNOMED Code(s): 20878060 (2) Nausea vomiting and diarrhea Current Visit: Yes Status: Acute Code(s): R11.2 - NAUSEA WITH VOMITING, UNSPECIFIED; R19.7 - DIARRHEA, UNSPECIFIED SNOMED Code(s): 7144121 Plan: Supportive care Clear liquid diet, advance as tolerated Dicyclomine 20 mg 4 times a day added Dietary modifications discussed Imaging including computed tomography scan of the abdomen reviewed Follow up with GI after discharge, with consideration for colonoscopy Thank you for allowing us to participate in the care of the patient
--- NOTE | 2019-06-24 15:05 | P.DS ---
Providers Date of admission: 06/22/19 15:47 Expected date of discharge: 06/24/19 Attending physician: Derik Bowden MD Consults: 06/22/19 16:07 Consult Physician Stat Consulting Provider: Baljit Suarez Consult Reason/Comments: colitis, dehydration Do you want consulting provider notified?: Yes Primary care physician: Oralia Rodríguez [facility] Hospital Course: Final Diagnoses: (1) Generalized anxiety disorder Current Visit: Yes Status: Acute Code(s): F41.1 - GENERALIZED ANXIETY DISORDER SNOMED Code(s): 49666578 (2) Abdominal pain Current Visit: Yes Status: Acute Code(s): R10.9 - UNSPECIFIED ABDOMINAL PAIN SNOMED Code(s): 37429258 (3) Colitis Current Visit: Yes Status: Acute Code(s): K52.9 - NONINFECTIVE GASTROENTERITIS AND COLITIS, UNSPECIFIED SNOMED Code(s): 69323206 (4) Irregular menses, uterine fibroid. Stable, TVUS otherwise negative Hospital course: Charlotte Roblero is a 38 yo F with PMH of anxiety, uterine fibroids who presented to the ED complaining of a 2 month history of progressively worsening episodic abdominal pain, nausea, vomiting and diarrhea. She states that over the past few weeks especially these episodes have become more frequent. She does not feel this worsens with certain types of food. She has recently had evaluations of her gallbladder outpatient including HIDA scan which was negative. On presentation her vitals were stable, labs unremarkable, CT with fat stranding along ascending colon. Evaluated by GI, imaging/CT reviewed ,supportive care recommended. Bentyl added to med regime. Significant clinical improvement. Cleared by GI for discharge. Outpatient colonoscopy recommended. Patient is being discharged home in a stable condition with guarded prognosis. General: Alert and history, NAD. Lungs: normal respiratory effort, no wheezes or rales CV: Regular rate and rhythm, no murmur. Peripheral pulses 2+. Abdomen: soft, nondistended, no organomegaly. Minimal diffuse tenderness. Positive bowel sound Neuro: No focal deficits The impression and plan of care has been dictated as directed. : I performed a history and examination of this patient, discussed the same with the dictator. I agree with the dictator's note ,documented as a scribe. Any additional findings or plans will be noted. Patient Condition at Discharge: Stable Plan - Discharge Summary Discharge Rx Participant: No New Discharge Prescriptions: New Dicyclomine [Bentyl] 20 mg PO QID #40 tab Pantoprazole [Protonix] 40 mg PO BID #60 tablet. Continue Albuterol Nebulized [Ventolin Nebulized] 2.5 mg INHALATION RT-QID PRN PRN Reason: Shortness Of Breath Albuterol Inhaler [Ventolin Hfa Inhaler] 1 - 2 puff INHALATION RT-Q6H PRN PRN Reason: Shortness Of Breath PARoxetine [Paxil] 10 mg PO DAILY Ondansetron HCl [Zofran] 8 mg PO Q8H PRN PRN Reason: Nausea ALPRAZolam [Xanax] 0.25 mg PO DAILY PRN PRN Reason: Anxiety Norethindrone-E.estradiol-Iron [Junel Fe 1 mg-20 Mcg Tablet] 1 tab PO DAILY Discharge Medication List Albuterol Inhaler [Ventolin Hfa Inhaler] 1 - 2 puff INHALATION RT-Q6H PRN 06/16/19 [History] Albuterol Nebulized [Ventolin Nebulized] 2.5 mg INHALATION RT-QID PRN 06/16/19 [History] Ondansetron HCl [Zofran] 8 mg PO Q8H PRN 06/16/19 [History] PARoxetine [Paxil] 10 mg PO DAILY 06/16/19 [History] ALPRAZolam [Xanax] 0.25 mg PO DAILY PRN 06/22/19 [History] Norethindrone-E.estradiol-Iron [Junel Fe 1 mg-20 Mcg Tablet] 1 tab PO DAILY 06/22/19 [History] Dicyclomine [Bentyl] 20 mg PO QID #40 tab 06/24/19 [Rx] Pantoprazole [Protonix] 40 mg PO BID #60 tablet. 06/24/19 [Rx] Follow up Appointment(s)/Referral(s): Jabier Thornton DO [Doctor of Osteopathic Medicine] - 06/29/19 (Please call office to set up NEW PT appointment) Oralia Rodríguez DO [Primary Care Provider] - 3 Days (Please call office to make hospital follow up ) Baljit Suarez MD [STAFF PHYSICIAN] - 06/27/19 3:00 pm (Appointment with EMMETT Alex. ) Patient Instructions/Handouts: Dehydration (DC), Colitis (ED) Discharge Disposition: HOME SELF-CARE
[2019-06-24] MEDS ORDERED: PANTOPRAZOLE 40 MG TABLET PO SCH (21:00)
== END 2019-06-24 14:13 | disposition home or self-care (01) ==
LOC: EC 12:47 → 6NMEDSUR 15:47 → INTOOBSV 15:47 → UNDODISIN 06-24 14:13
PROVIDERS: ADMIT Family Medicine; ATTEND Family Medicine
DX: R10.12 Left upper quadrant pain (principal); R10.31 Right lower quadrant pain; R10.9 Unspecified abdominal pain; R11.2 Nausea with vomiting, unspecified; R19.7 Diarrhea, unspecified; E86.0 Dehydration; E66.9 Obesity, unspecified; Z68.38 Body mass index [BMI] 38.0-38.9, adult; Z87.891 Personal history of nicotine dependence; J45.909 Unspecified asthma, uncomplicated; N92.6 Irregular menstruation, unspecified; D25.9 Leiomyoma of uterus, unspecified; F41.1 Generalized anxiety disorder; Z98.890 Other specified postprocedural states; Z82.49 Family history of ischemic heart disease and other diseases of the circulatory system; Z83.79 Family history of other diseases of the digestive system; Z82.0 Family history of epilepsy and other diseases of the nervous system; Z82.61 Family history of arthritis; Z83.49 Family history of other endocrine, nutritional and metabolic diseases; Z79.3 Long term (current) use of hormonal contraceptives; Z79.899 Other long term (current) drug therapy; Z88.0 Allergy status to penicillin; Z91.018 Allergy to other foods
CPT/HCPCS: 96376 ×3; 96361 ×3; 96366 ×2; 96372; 96375 ×3; 96365; 99285; 36415; 80053; 85652; 83605; 83690; 85025; 86140; 81001; 81025; 83993; 87045; 87329; 87328; 87046; 93975; 76830; 74177; G0378 ×3; J2270 ×2; J2765; J2405 ×2; J1956; C9113 ×2; Q9967

== ENCOUNTER → 2023-06-29 | Outpatient (CLI) | payer BC ==
--- NOTE | 2023-07-01 07:43 | MM ---
Reason for Exam: Screening (asymptomatic). Baseline mammogram. Patient History: Menarche at age 13. Patient has no children. Hysterectomy at age 41. Premenopausal. Risk Values: Halle 5 year model risk: 0.7%. NCI Lifetime model risk: 11.0%. Prior Study Comparison: Patient's first Mammogram. Tissue Density: There are scattered areas of fibroglandular density. Findings: Analyzed By CAD. In the right breast, there is nodularity in the upper inner quadrant at a middle depth. In the left breast, there is an area of medial subareolar nodularity on the MLO view. Otherwise, no suspicious microcalcification or other discrete abnormality is seen. Overall Assessment: Incomplete: need additional imaging evaluation, BI-RAD 0 Management: Special View Mammogram of both breasts. Diagnostic Breast Ultrasound of both breasts. Additional views right breast to include spot 3-D CC, spot 3-D MLO, and 3-D LM views. Additional views left breast to include spot 3-D MLO and 3-D lateral views. Targeted ultrasound of either breast if any persisting abnormality. [facility] will attempt to contact patient to return for supplemental views and ultrasound if indicated. Electronically signed and approved by: Nevin Waddell M.D. Radiologist
== END | disposition home or self-care (01) ==
LOC: RADMAMWWP 07:11
PROVIDERS: ATTEND Family Medicine
DX: Z12.31 Encounter for screening mammogram for malignant neoplasm of breast (principal)
CPT/HCPCS: 77067

== ENCOUNTER → 2023-07-02 | Outpatient (CLI) | payer BC ==
--- NOTE | 2023-07-02 11:52 | USB ---
Reason for Exam: Additional evaluation requested from abnormal screening. Patient History: Menarche at age 13. Patient has no children. Hysterectomy at age 41. Premenopausal. Risk Values: Halle 5 year model risk: 0.7%. NCI Lifetime model risk: 11.0%. Technique: Method: Targeted. Prior Study Comparison: 06/29/2023 Bilateral MG screening mammo w CAD, [facility]. Findings: The upper outer quadrant of the right breast, the upper inner quadrant of the left breast, the axilla of both breasts and the retroareolar of both breasts were scanned. Targeted ultrasound right breast 9:00 to 12:00 including scanning of the subareolar region and axilla. At the 9:00 position, 10 cm from the nipple, there is an oval circumscribed hypoechoic lesion measuring 1.3 x 1.0 x 0.5 cm. No internal vascularity. Given low density on mammogram, a benign etiology such as a fibroadenoma is favored. Targeted ultrasound left breast upper inner quadrant 9:00 to 12:00 including scanning of the subareolar region and axilla. At the 11:00 position, 5 cm from the nipple, there is a bilobed hypoechoic circumscribed lesion measuring 1.0 x 0.8 x 0.3 cm, mammographic correlation. Given low density on mammogram, a benign etiology such as fibroadenoma is favored. Overall Assessment: Probably benign, BI-RAD 3 Management: Diagnostic Mammogram of both breasts in 6 months. Diagnostic Breast Ultrasound of both breasts in 6 months. A clinical breast exam by your physician is recommended on an annual basis and results should be correlated with mammographic findings. This exam should not preclude additional follow-up of suspicious palpable abnormalities. Results were given to the patient verbally at the time of exam. Electronically signed and approved by: Nevin Waddell M.D. Radiologist
--- NOTE | 2023-07-02 12:06 | MM ---
Reason for Exam: Additional evaluation requested from abnormal screening. Last screening mammogram was performed less than 1 month ago. Patient History: Menarche at age 13. Patient has no children. Hysterectomy at age 41. Premenopausal. Risk Values: Halle 5 year model risk: 0.7%. NCI Lifetime model risk: 11.0%. Prior Study Comparison: 06/29/2023 Bilateral MG screening mammo w CAD, [facility]. Tissue Density: There are scattered areas of fibroglandular density. Findings: Analyzed By CAD. On the right, there is a persisting 1.4 cm isodense circumscribed area approximately 10:00 position middle depth. 3-D lateral views suggests upper outer quadrant location. The questioned medial asymmetry does not persist. Further ultrasound evaluation recommended. On the left, there is persisting 1.4 cm isodense circumscribed mass upper inner quadrant anterior depth for which further ultrasound evaluation is recommended. Overall Assessment: Incomplete: need additional imaging evaluation, BI-RAD 0 Management: Diagnostic Breast Ultrasound of both breasts. Electronically signed and approved by: Nevin Waddell M.D. Radiologist
== END | disposition home or self-care (01) ==
LOC: RADMAMWWP 10:12
PROVIDERS: ATTEND Family Medicine
DX: R92.323 Mammographic fibroglandular density, bilateral breasts (principal)
CPT/HCPCS: 77062; 77066